=== PATIENT | female | born 1975 | race Caucasian/White ===

== ENCOUNTER 2018-06-11 06:35 | Outpatient (CLI) | payer MEDICAID | END 2018-06-11 06:36 | disposition home or self-care (01) | LOC: BICULT 06:35 | PROVIDERS: ATTEND Nurse Practitioner Women's Health | DX: T83.32XA Displacement of intrauterine contraceptive device, initial encounter (principal); N88.8 Other specified noninflammatory disorders of cervix uteri | CPT/HCPCS: 76856 ==